=== PATIENT | male | born 1990 | race Caucasian/White ===

== ENCOUNTER 2018-04-30 22:25 | Emergency (ER) | payer OTHER ==
[~2018-04-30] VITALS: Ht 177.8 cm; Wt 72.7 kg
[2018-04-30 22:33] VITALS: Ht 177.8 cm; Wt 72.7 kg
--- NOTE | 2018-04-30 23:32 | ERD ---
ER Documentation Chief Complaint Chief Complaint ERRATIC PATIENT IN CUSTODY WITH [employer]; MEDICAL CLEARANCE HPI This is a 20-year-old male in [employer] custody. He has superficial abrasions across his hands. He is here for medical clearance. Denies any fevers chills nausea vomiting or any other current complaints. ROS All systems reviewed and are negative except as per history of present illness. Allergies Allergies: Coded Allergies: No Known Allergy (Unverified , 04/30/18) PMhx/Soc Medical and Surgical Hx: pt denies Medical Hx, pt denies Surgical Hx History of Surgery: No Anesthesia Reaction: No Hx Neurological Disorder: No Hx Respiratory Disorders: No Hx Cardiac Disorders: No Hx Psychiatric Problems: No Hx Miscellaneous Medical Probl: No Hx Alcohol Use: No Hx Substance Use: Yes (MARIJUANA) Smoking Status: Current every day smoker Physical Exam Vitals Vital Signs Date Temp Pulse Resp B/P (MAP) Pulse Ox O2 O2 Flow FiO2 Time Delivery Rate 04/30/18 98.3 115 18 156/96 95 22:33 (116) 04/30/18 99.4 118 24 152/89 100 Room Air 22:30 (110) Physical Exam Const: No acute distress Head: Atraumatic Eyes: Normal Conjunctiva ENT: Normal External Ears, Nose and Mouth. Neck: Full range of motion. No meningismus. Resp: Clear to auscultation bilaterally Cardio: Regular rate and rhythm, no murmurs Abd: Soft, non tender, non distended. Normal bowel sounds Skin: Mild abrasion noted to the knuckles on both hands. Minimal active bleeding noted. 1 cm linear laceration with 2 mm of depth on third knuckle right hand. Back: No midline or flank tenderness Ext: No cyanosis, or edema Neur: Awake and alert Psych: Normal Mood and Affect Procedures/MDM Laceration Repair by me: Anesthesia: None Location: Hand Tendon/Joint/Nerves: No injury Foreign body: None detected after copious irrigation and exploration Technique: Dermabond Complexity: No subcutaneous sutures/mucosal repair/edge excision Post Closure Length: 1 cm Patient's bleeding was easily controlled in the department and there is no indication of anemia. No evidence of compartment syndrome, neurologic injury, vascular injury, open joint, tendon laceration, or foreign body. Patient is appropriate for outpatient follow up. 48 hour wound check. Scar minimization instructions given. Medical decision making: Patient here for a superficial laceration. Treated with Dermabond. Stable for disposition in police custody. Departure Diagnosis: Primary Impression: Medical clearance for incarceration Additional Impression: Laceration Condition: Stable JANAY GRIER Apr 30, 2018 23:32
[2018-04-30 23:37] VITALS: BP 152/89; PULSE 118; RESP 24
== END 2018-04-30 23:37 ==
LOC: E/R 22:25
DX: S61.411A Laceration without foreign body of right hand, initial encounter (principal); F17.210 Nicotine dependence, cigarettes, uncomplicated; X58.XXXA Exposure to other specified factors, initial encounter; Y92.9 Unspecified place or not applicable; Z02.89 Encounter for other administrative examinations